=== PATIENT | male | born 1950 | race Hispanic/Latino ===

== ENCOUNTER 2017-10-11 07:00 | Day surgery (SDC) | payer MEDICARE, BC ==
[2017-10-02 11:45] VITALS: BMI 23.6
[2017-10-11] MEDS ORDERED: Propofol 10 mg/ml Inj (20 ML) ONE ×3 (08:37→09:36)
[2017-10-11] MEDS ORDERED: Etomidate 20 mg/10ml Inj IV ONE (08:39)
[2017-10-11] MEDS ORDERED: Sodium Chloride 0.9% 1,000 ML IV SCH (10:00)
[2017-10-11 11:13] VITALS: BP 153/65; PULSE 64; RESP 19; TEMP 97.5; O2SAT 100
--- NOTE | 2017-10-11 21:31 | CARD ---
APPROVED REPORT EKG Measurement Heart [id number] 142P51 [id number] <Conclusion> Sinus bradycardia Septal infarct, age undetermined Possible Godfrey-Lateral infarct, age undetermined Abnormal ECG
== END 2017-10-11 11:31 | disposition home or self-care (01) ==
LOC: ENDO 07:00
PROVIDERS: ATTEND Internal Medicine Gastroenterology
DX: Z12.11 Encounter for screening for malignant neoplasm of colon (principal); K63.5 Polyp of colon; K31.7 Polyp of stomach and duodenum; K52.9 Noninfective gastroenteritis and colitis, unspecified; K64.8 Other hemorrhoids; K29.70 Gastritis, unspecified, without bleeding; K29.80 Duodenitis without bleeding; D50.9 Iron deficiency anemia, unspecified
CPT/HCPCS: 43239; 43251; 45380; 45381; 45385; 82948; 87045; 87177; 87209; 87324; 88305; 88342; 93005; J2001; J2704; J7030; J7040